=== PATIENT | male | born 1980 ===

== ENCOUNTER 2018-05-17 14:17 | Emergency (ER) | payer OTHER ==
[2018-05-17] MEDS ORDERED: Famotidine 20mg/50ml 20 MG/50 ML BAG IVPB ONE ×2 (16:15→16:23)
[2018-05-17 16:27] LABS: BASO % 0.3 % (0.0-2.0); EOS % 0.1 % (0.0-4.0); LYMPH # 1.2 K/uL (1.0-4.3); MEAN CELL VOLUME 94.8 fl (80.0-94.0); MEAN CORPUSCULAR HEMOGLOBIN 32.5 pg (27.0-31.0); MEAN CORPUSCULAR HGB CONC 34.3 g/dL (33.0-37.0); MEAN PLATELET VOLUME 12.3 fl (7.2-11.7); MONO # 0.3 K/uL (0.0-0.8); MONO % 3.1 % (0.0-10.0); NEUT # 8.2 K/uL (1.8-7.0); NEUT % 84.5 % (50.0-75.0); RBC 4.94 Mil/uL (4.40-5.90); RED CELL DISTRIBUTION WIDTH 12.9 % (11.5-14.5); WHITE BLOOD COUNT 9.6 K/uL (4.8-10.8)
[2018-05-17 16:36] LABS: ALB/GLOB RATIO 1.3 (1.0-2.1); ALBUMIN 5.2 g/dL (3.5-5.0); CALCIUM 10.1 mg/dL (8.4-10.2); GFR AFRICAN-AMERICAN > 60; GFR NON-AFRICAN AMERICAN > 60; LIPASE 93 U/L (23-300)
[2018-05-17 16:43] LABS: ALT/SGPT 39 U/L (21-72); AST/SGOT 33 U/L (17-59); BLOOD UREA NITROGEN 31 mg/dl (9-20)
--- NOTE | 2018-05-17 17:43 | ED PDOC ---
HPI: Abdomen Time Seen by Provider: 05/17/18 15:16 Chief Complaint (Nursing): GI Problem History Per: Patient History/Exam Limitations: no limitations Onset/Duration Of Symptoms: Days (1) Current Symptoms Are (Timing): Still Present Severity: Moderate Pain Scale Rating Of: 4 Location Of Pain/Discomfort: Epigastric Quality Of Discomfort: Dull Associated Symptoms: Nausea, Vomiting Exacerbating Factors: None Alleviating Factors: None Last Bowel Movement: Today Additional History Per: Patient Additional Complaint(s): patient c/o nausea, vomiting and headaches for 1 day. Associated epigastric pain. Reports diffuse headache for 1 day. Reports hx gastritis but not taking medications. Past Medical History Reviewed: Historical Data, Nursing Documentation, Vital Signs Vital Signs: Last Vital Signs Temp 97 F L 05/17/18 18:55 Pulse 78 05/17/18 18:55 Resp 18 05/17/18 18:55 BP 127/76 05/17/18 18:55 Pulse Ox 98 05/17/18 18:55 - Medical History PMH: Gastritis - Surgical History Surgical History: No Surg Hx - Family History Family History: States: No Known Family Hx - Allergies Allergies/Adverse Reactions: Allergies Allergy/AdvReac Type Severity Reaction Status Date / Time aspirin Allergy RASH Verified 05/17/18 14:49 Review of Systems ROS Statement: Except As Marked, All Systems Reviewed And Found Negative Physical Exam - Reviewed Nursing Documentation Reviewed: Yes Vital Signs Reviewed: Yes - Physical Exam Appears: Positive for: Well, Non-toxic, No Acute Distress Head Exam: Positive for: ATRAUMATIC, NORMAL INSPECTION Skin: Positive for: Warm, Dry Eye Exam: Positive for: EOMI, PERRL Neck: Positive for: Painless ROM, Supple Cardiovascular/Chest: Positive for: Regular Rate, Rhythm. Negative for: Tachycardia Respiratory: Positive for: Normal Breath Sounds. Negative for: Wheezing Gastrointestinal/Abdominal: Positive for: Soft. Negative for: Tenderness Back: Positive for: Normal Inspection Extremity: Positive for: Normal ROM Neurologic/Psych: Positive for: Alert, Oriented - Laboratory Results Result Diagrams: 05/17/18 16:20 05/17/18 16:20 - ECG O2 Sat by Pulse Oximetry: 99 - Progress Re-evaluation Time: 18:23 Condition: Re-examined, Improved Medical Decision Making Medical Decision Making: IMpression abdominal pain vomiting and headache Differential includes acute gastritis, pancreatitis, migraines Disposition - Clinical Impression Clinical Impression: Abdominal pain, Headache - Patient ED Disposition Is Patient to be Admitted: No Doctor Will See Patient In The: Office Counseled Patient/Family Regarding: Studies Performed, Diagnosis, Need For Followup - Disposition Disposition: Routine/Home Disposition Time: 18:25 Condition: GOOD Additional Instructions: Follow up with your PCP in 2-3 days. Instructions: Gastritis, Headache, Adult Print Language: DIVEHI
[2018-05-17 18:56] VITALS: BP 127/76; PULSE 78; RESP 18; TEMP 97
[2018-05-20 12:55] VITALS: O2SAT 99
== END 2018-05-17 19:01 | disposition home or self-care (01) ==
LOC: H.ER 14:17
DX: R10.13 Epigastric pain (principal); R51 Headache
CPT/HCPCS: 80053; 83690; 85025; 87070; 87430; 96374; 99283; J2405

== ENCOUNTER 2018-07-15 02:50 | Emergency (ER) | payer OTHER ==
[2018-07-15 03:02] VITALS: RESP 18
[2018-07-15] MEDS ORDERED: Sodium Chloride 0.9% 1,000 ML IV SCH (04:00)
[2018-07-15 04:04] LABS: BASO % 0.1 % (0.0-2.0); EOS % 0.3 % (0.0-4.0); HEMOGLOBIN 15.3 g/dL (12.0-18.0); LYMPH # 0.8 K/uL (1.0-4.3); LYMPH % 8.2 % (20.0-40.0); MEAN CELL VOLUME 93.9 fl (80.0-94.0); MEAN CORPUSCULAR HGB CONC 35.1 g/dL (33.0-37.0); MEAN PLATELET VOLUME 11.9 fl (7.2-11.7); MONO # 0.6 K/uL (0.0-0.8); MONO % 6.2 % (0.0-10.0); NEUT # 8.3 K/uL (1.8-7.0); NEUT % 85.2 % (50.0-75.0); NRBC % 0.1 % (0.0-0.0); PLATELET COUNT 122 K/uL (130-400); RBC 4.64 Mil/uL (4.40-5.90); WHITE BLOOD COUNT 9.8 K/uL (4.8-10.8)
[2018-07-15 04:10] LABS: ALB/GLOB RATIO 1.5 (1.0-2.1); ALBUMIN 4.8 g/dL (3.5-5.0); CALCIUM 9.4 mg/dL (8.4-10.2); GFR AFRICAN-AMERICAN > 60; GFR NON-AFRICAN AMERICAN > 60
--- NOTE | 2018-07-15 04:14 | ED PDOC ---
HPI: Abdomen Chief Complaint (Provider): Abdominal pain History Per: Patient History/Exam Limitations: language barrier ([place]) Onset/Duration Of Symptoms: Hrs (2) Current Symptoms Are (Timing): Still Present Context: Other (at rest) Severity: Severe Pain Scale Rating Of: 10 Location Of Pain/Discomfort: Diffuse Quality Of Discomfort: Sharp Associated Symptoms: Nausea, Vomiting (x5 mucous; nonbloody) Alleviating Factors: None <Oumar Quinones - Last Filed: 07/15/18 05:09> <Hugo Arenas - Last Filed: 07/15/18 05:19> Time Seen by Provider: 07/15/18 03:15 Chief Complaint (Nursing): Abdominal Pain Additional Complaint(s): 38 yo M with pmhx of gastritis presents with diffuse abdominal pain. He reports that at 01:00 approximately 2 hours prior to arrival, he suddenly woke up with intense 10/10 pain at RLQ diffusely radiating throughout his abdomen. Sharp in quality. Worsen with movement with no alleviating factors. Associated with nausea and vomiting 5 times (mucous and water) no hematemasis. Denies recent abdominal trauma. Reports similar symptom approximately 3 months ago but spontaneously resolved. Denies chest pain, SOB or subjective fever. pmhx: gastritis surg: R shoulder Famhx: none Soc: denies smoking, illicit drugs; socially drinks alcohol NKDA Rx: PPI (was recently switched from omeprazole) Reported aspirin allergy in form of abdominal pain and contraindication for history of gastritis (Oumar Quinones) Supervising Attending Note - Supervising Attending Note The Documented history was done by the: Physician [employer] And Controls Tester, Attending Physician The documented physical exam was done by the: Physician [employer] Tester, Attending Physician The documented procedures were done by the: Physician [employer] Tester, Attending Physician - Attestation: I have personally seen and examined this patient.: Yes I have fully participated in the care of the patient.: Yes I have reviewed all pertinent clinical information: Yes <Hugo Arenas - Last Filed: 07/15/18 05:19> Past Medical History - Medical History PMH: Gastritis - Surgical History Surgical History: No Surg Hx - Family History Family History: States: No Known Family Hx - Living Arrangements Living Arrangements: With Family - Social History Current smoker - smoking cessation education provided: No Alcohol: Social Drugs: Denies <Oumar Quinones - Last Filed: 07/15/18 05:09> Reviewed: Historical Data, Nursing Documentation, Vital Signs <Hugo Arenas Last Filed: 07/15/18 05:19> Vital Signs: Last Vital Signs Temp 98.8 F 07/15/18 02:59 Pulse 109 H 07/15/18 02:59 Resp 18 07/15/18 02:59 BP 143/86 07/15/18 02:59 Pulse Ox 99 07/15/18 05:13 - Home Medications Home Medications: Ambulatory Orders Medication Instructions Recorded Dicyclomine [Dicyclomine HCl] 10 mg PO BID #14 cap 07/15/18 Ondansetron HCl [Zofran] 4 mg PO PRN PRN #7 tablet 07/15/18 - Allergies Allergies/Adverse Reactions: Allergies Allergy/AdvReac Type Severity Reaction Status Date / Time aspirin Allergy RASH Verified 05/17/18 14:49 Review of Systems Cardiovascular: Negative for: Chest Pain Respiratory: Negative for: Shortness of Breath Gastrointestinal: Positive for: Nausea, Vomiting, Abdominal Pain <Oumar Quinones - Last Filed: 07/15/18 05:09> ROS Statement: Except As Marked, All Systems Reviewed And Found Negative <Hugo Arenas - Last Filed: 07/15/18 05:19> Physical Exam - Physical Exam Appears: Positive for: In Acute Distress (guarding) Skin: Positive for: Warm, Dry Eye Exam: Positive for: EOMI Cardiovascular/Chest: Positive for: Regular Rate, Rhythm. Negative for: Murmur Respiratory: Positive for: Normal Breath Sounds. Negative for: Wheezing Gastrointestinal/Abdominal: Positive for: Bowel Sounds, Tenderness (diffuse, greater on RUQ), Guarding. Negative for: Rebound Extremity: Positive for: Normal ROM. Negative for: Tenderness, Pedal Edema Neurologic/Psych: Positive for: Alert, adult probation officer II-XII, Oriented <Oumar Quinones - Last Filed: 07/15/18 05:09> - Reviewed Nursing Documentation Reviewed: Yes Vital Signs Reviewed: Yes <Hugo Arenas - Last Filed: 07/15/18 05:19> - Laboratory Results Result Diagrams: 07/15/18 03:58 07/15/18 03:58 - ECG O2 Sat by Pulse Oximetry: 99 - Radiology X-Ray: Viewed By Ca - CT Scan/US abdo Other Rad Studies (CT/US): Read By Radiologist, Radiology Report Reviewed <Cedrick Quinonesang - Last Filed: 07/15/18 05:09> - Laboratory Results Result Diagrams: 07/15/18 03:58 07/15/18 03:58 <Hugo Arenas - Last Filed: 07/15/18 05:19> - Progress ED Course And Treament: 38 yo M with pmhx of gastritis presents with diffuse abdo pain Abdo pain -CXR -EKG -CT ABDO W/ -CBC/CMP/LIPASE/UA -Toradol 30 mg IVP -Zofran -IVF 1 L NS bolus 05:[address] abdo: small bowel enteritis Pt stable, resting comfortably DC home: with ER precautions, Bentyl and zofran Case dw Dr. Dagoberto Quinones MD PGY2 (Oumar Quinones) Disposition - Patient ED Disposition Is Patient to be Admitted: No - Disposition Disposition Time: 05:11 <Oumar Quinones - Last Filed: 07/15/18 05:09> <Hugo Arenas - Last Filed: 07/15/18 05:19> - Clinical Impression Clinical Impression: Abdominal pain, Enteritis - Disposition Referrals: Kindra Griffin MD [Primary Care Provider] - Condition: GOOD Additional Instructions: CT abdo: small bowel enteritis Pt stable, resting comfortably DC home: with ER precautions, Bentyl and zofran Please follow up with PMD in 3 days Prescriptions: Dicyclomine [Dicyclomine HCl] 10 mg PO BID #14 cap Ondansetron HCl [Zofran] 4 mg PO PRN PRN #7 tablet PRN Reason: Nausea/Vomiting Instructions: Gastritis, Acute Abdomen (Belly Pain), Nausea and Vomiting, Adult Forms: [employer] (Chinese), [employer] (Kenyan) Print Language: SLOVAK
[2018-07-15 04:25] LABS: AST/SGOT 46 U/L (17-59)
[2018-07-15] MEDS ORDERED: Sodium Chloride 0.9% 50 ML IV ONE (04:26)
[2018-07-15] MEDS ORDERED: Iohexol 300 100 ML IJ ONE (04:26)
[2018-07-15 04:42] LABS: LIPASE 85 U/L (23-300)
[2018-07-15 04:47] LABS: ALT/SGPT 48 U/L (21-72); BLOOD UREA NITROGEN 16 mg/dl (9-20)
[2018-07-15 04:52] LABS: URINE BILIRUBIN NEGATIVE (NEGATIVE); URINE BLOOD NEGATIVE (NEGATIVE); URINE CLARITY SLIGHTY-CLOUDY (Clear); URINE COLOR YELLOW (YELLOW); URINE GLUCOSE (UA) NEG (Normal); URINE LEUKOCYTE ESTERASE NEG Leu/uL (Negative); URINE PROTEIN 30 mg/dL (NEGATIVE); URINE UROBILINOGEN 0.2-1.0 mg/dL (0.2-1.0)
[2018-07-15 05:20] VITALS: BP 107/61; PULSE 99; TEMP 98.9; O2SAT 98
--- NOTE | 2018-07-15 08:22 | CARD ---
APPROVED REPORT Date of service: 07/15/2018 EKG Measurement Heart [id number] <Conclusion> Normal sinus rhythm borderline IVCD borderline ecg
--- NOTE | 2018-07-15 09:03 | RAD ---
Date of service: 07/15/2018 HISTORY: ABDO PAIN COMPARISON: No prior. FINDINGS: LUNGS: No active pulmonary disease. PLEURA: No significant pleural effusion identified, no pneumothorax apparent. CARDIOVASCULAR: Normal. OSSEOUS STRUCTURES: No significant abnormalities. VISUALIZED UPPER ABDOMEN: Normal. OTHER FINDINGS: None. IMPRESSION: No acute cardiopulmonary disease appreciated.
[2018-07-15 09:41] LABS: ANISOCYTOSIS SLIGHT; LARGE PLATELETS PRESENT; LYMPHOCYTE 11 % (20-50); MONOCYTE 3 % (0-10); NEUTROPHIL 86 % (42-75); OVALOCYTES SLIGHT; PLATELET ESTIMATE SLIGHTLY DECREASED (NORMAL); TEARDROP CELLS SLIGHT; TOTAL CELLS COUNTED 100
--- NOTE | 2018-07-15 11:14 | CT ---
Date of service: 07/15/2018 PROCEDURE: CT Abdomen and Pelvis with Oral contrast. HISTORY: Abdominal pain COMPARISON: None. TECHNIQUE: Contiguous axial images of the abdomen and pelvis performed of following intravenous injection of approximately 90 cc Omnipaque 300 contrast material. Additional 2D sagittal and coronal reformats generated. Radiation dose: Total exam DLP = 320.12 mGy-cm. This CT exam was performed using one or more of the following dose reduction techniques: Automated exposure control, adjustment of the mA and/or kV according to patient size, and/or use of iterative reconstruction technique. FINDINGS: LOWER THORAX: Heart size is upper limits of normal. No significant pericardial effusion of. Small hiatal hernia. There are mild passive/dependent type atelectatic changes both posterior lower lung zones. LIVER: Liver is upper limits of normal nearly 618 cm in CC dimension. Mild diffuse fatty hepatic infiltration. No obvious hepatic mass or collection. Portal and splenic veins are opacified. The the GALLBLADDER AND BILE DUCTS: Gallbladder is physiologically distended. No evidence of intraluminal gallbladder calculi. PANCREAS: Unremarkable. No mass. No ductal dilatation. SPLEEN: Unremarkable. No splenomegaly. ADRENALS: Unremarkable. KIDNEYS AND URETERS: Unremarkable. No stone or hydronephrosis. BLADDER: Urinary bladder is incompletely distended which in part accounts thick-walled appearance. Muscular hypertrophy may contribute. Correlation with urinalysis recommended to exclude cystitis. REPRODUCTIVE: Prostate gland measures nearly 4.6 cm in transverse dimension. APPENDIX: Normal appendix best seen on coronal image number [id number] and axial image number [id number]. BOWEL: Stomach is incompletely distended which in part accounts for thick-walled appearance. Gastritis not excluded. Visualized loops of small bowel exhibit normal contour however there are several loops of proximal small bowel left upper and mid abdomen that exhibit mild wall thickening Stool and air seen throughout the large bowel. No definitive abnormal mural wall thickening of the colon. PERITONEUM: Unremarkable. No fluid collection. No free air. Small fat containing umbilical hernia. LYMPH NODES: Unremarkable. No enlarged lymph nodes. VASCULATURE: Unremarkable. No aortic aneurysm. BONES: No fracture or destructive lesion. OTHER FINDINGS: None. IMPRESSION: Findings consistent with localized enteritis involving the proximal loops of small-bowel as described. Mild fatty hepatic infiltration. The see above discussion for additional findings and details and recommendations.
== END 2018-07-15 05:30 | disposition home or self-care (01) ==
LOC: H.ER 02:50
DX: K52.9 Noninfective gastroenteritis and colitis, unspecified (principal)
CPT/HCPCS: 71045; 74177; 80053; 81003; 83690; 85025; 93005; 96374; 96375; 99284; J1885; J2405; J7030; Q9967